=== PATIENT | male | born 1960 | race Caucasian/White ===

== ENCOUNTER 2021-11-30 16:53 | Emergency (ER) | payer SELFPAY ==
[~2021-11-30] VITALS: Ht 162.6 cm; Wt 81.8 kg
[2021-11-30 16:53] VITALS: TEMP 98.8
[2021-11-30 18:04] LABS: BASO % 0.3 % (0.0-2.0); EOS % 0.2 % (0.0-4.0); GRAN # 8.1 K/mm3 (1.4-6.5); GRAN % 84.1 % (42.2-75.2); HEMATOCRIT 44.3 % (42.0-52.0); HEMOGLOBIN 15.1 g/dl (13.5-18.0); LYMPH # 0.8 K/mm3 (1.2-3.4); LYMPH % 8.8 % (20.0-51.0); MEAN CELL VOLUME 86 fl (80.0-100.0); MEAN CORPUSCULAR HEMOGLOBIN 29 pg (27-31); MEAN CORPUSCULAR HGB CONC 34 g/dl (33.0-37.0); MONO # 0.6 K/mm3 (0.1-0.6); MONO % 6.1 % (1.7-9.3); PLATELET COUNT 223 K/mm3 (130-400); RED BLOOD COUNT 5.13 M/mm3 (4.20-5.60); REDCELL DISTRIBUTION WIDTH-CV 12.9 % (11.5-14.5)
[2021-11-30 18:06] LABS: INR 1.1 (0.8-3.0); PROTHROMBIN TIME 12.8 SECONDS (9.7-12.8)
[2021-11-30 18:16] LABS: ALANINE AMINOTRANSFERASE 24 U/L (0-55); ALBUMIN 4.6 gm/dL (3.4-4.8); ALKALINE PHOSPHATASE 68 U/L (40-150); ANION GAP 13 mmol/L (7-16); AST,SGOT 26 U/L (5-34); BLOOD UREA NITROGEN 25 mg/dL (8-26); CALCIUM 9.9 mg/dL (8.4-10.2); CARBON DIOXIDE 22 mmol/L (23-31); CHLORIDE 108 mmol/L (98-107); GLUCOSE 126 mg/dL (70-99); POTASSIUM 4.5 mmol/L (3.5-4.5); SODIUM 143 mmol/L (136-145)
[2021-11-30 18:32] LABS: ALCOHOL(ethanol),MEDICAL < 10 mg/dL (0-10)
[2021-11-30 20:30] VITALS: BP 154/93; PULSE 102
== END 2021-11-30 20:40 | disposition short-term general hospital (02) ==
LOC: COL.ER 16:53
PROVIDERS: Physician Assistant
DX: S82.042A Displaced comminuted fracture of left patella, initial encounter for closed fracture (principal); S02.2XXA Fracture of nasal bones, initial encounter for closed fracture; S01.21XA Laceration without foreign body of nose, initial encounter; S36.892A Contusion of other intra-abdominal organs, initial encounter; V86.05XA Driver of 3- or 4- wheeled all-terrain vehicle (ATV) injured in traffic accident, initial encounter; Y92.410 Unspecified street and highway as the place of occurrence of the external cause
CPT/HCPCS: J1170; Q9967